=== PATIENT | female | born 1990 | race Caucasian/White ===

== ENCOUNTER 2017-07-29 21:23 | Emergency (ER) | payer OTHER ==
[2017-07-29 22:05] VITALS: BP 140/94; PULSE 77; RESP 18; TEMP 98.5
--- NOTE | 2017-07-29 22:18 | ED ---
General Adult HPI - General Chief complaint: Needlestick/Exposure Stated complaint: Needle stick Time Seen by Provider: 07/29/17 22:13 Source: patient, RN notes reviewed, old records reviewed Mode of arrival: ambulatory Limitations: no limitations - History of Present Illness Initial comments: 27-year-old female presents emergency Department with a chief complaint of needle stick. Patient was sewing a laceration and actually stuck her left index finger. 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 Patient reports that she cleaned herself with soap and water. We are able to obtain the labs from the Patient that she actually stuck. - Related Data Allergies Allergy/AdvReac Type Severity Reaction Status Date / Time Sulfa (Sulfonamide Allergy Rash/Hives Verified 07/29/17 22:03 Antibiotics) Review of Systems ROS Statement: Those systems with pertinent positive or pertinent negative responses have been documented in the HPI. ROS Other: All systems not noted in ROS Statement are negative. Past Medical History Past Medical History: No Reported History History of Any Multi-Drug Resistant Organisms: MRSA Date of last positivie culture/infection: 2011 MDRO Source:: buttocks Past Surgical History: No Surgical Hx Reported Past Psychological History: Anxiety, Depression Smoking Status: Never smoker Past Alcohol Use History: None Reported Past Drug Use History: None Reported General Exam - General Exam Comments Initial Comments: this is a 27-year-old female. Alert and oriented. No significant distress. Limitations: no limitations General appearance: alert, in no apparent distress Head exam: Present: atraumatic, normocephalic, normal inspection Eye exam: Present: normal appearance, PERRL, EOMI. Absent: scleral icterus, conjunctival injection, periorbital swelling ENT exam: Present: normal exam, mucous membranes moist Neck exam: Present: normal inspection. Absent: tenderness, meningismus, lymphadenopathy Respiratory exam: Present: normal lung sounds bilaterally. Absent: respiratory distress, wheezes, rales, rhonchi, stridor Cardiovascular Exam: Present: regular rate, normal rhythm, normal heart sounds. Absent: systolic murmur, diastolic murmur, rubs, gallop, clicks Extremities exam: Present: normal inspection, full ROM, normal capillary refill. Absent: tenderness, pedal edema, joint swelling, calf tenderness Back exam: Present: normal inspection Neurological exam: Present: alert Psychiatric exam: Present: normal affect, normal mood Skin exam: Present: warm, dry, intact, normal color. Absent: rash Course Vital Signs 07/29/17 21:57 Temperature 98.5 F Pulse Rate 77 Respiratory 18 Rate Blood Pressure 140/94 O2 Sat by Pulse 100 Oximetry Medical Decision Making - Medical Decision Making Patient is a 19-year-old female presents for needlestick injury. We were able to obtain the labs from the Patient that she was actually struck by. Patient discussed about prophylaxis. We will hold off at this time until results of the other Patient that she was actually stuck.by. Patient understands treatment plan will comply. Return parameters were discussed. Disposition Clinical Impression: Needle stick injury Disposition: HOME SELF-CARE Condition: Good Instructions: Needle Stick Injuries (ED) Additional Instructions: Patient should follow-up with primary care provider. We'll inform you of your results. Return to the emergency department if any alarming signs or symptoms occur. Or return here for work. Is patient prescribed a controlled substance at d/c from ED?: No When asked, does pt state using other controlled substances?: No If prescribed controlled substance>3 days was MAPS reviewed?: No If opioid is for acute pain is fill amount 7 days or less?: No If Rx opioid, was Start Talking consent form obtained?: No Referrals: Danita Fagan DO [Primary Care Provider] - 1-2 days Time of Disposition: 22:17
== END 2017-07-29 22:50 | disposition home or self-care (01) ==
LOC: EC 21:23
DX: S61.231A Puncture wound without foreign body of left index finger without damage to nail, initial encounter (principal); Z86.14 Personal history of Methicillin resistant Staphylococcus aureus infection; Z88.2 Allergy status to sulfonamides; W46.0XXA Contact with hypodermic needle, initial encounter
CPT/HCPCS: 99283

== ENCOUNTER → 2018-08-03 | Outpatient (CLI) | payer BC ==
[2018-08-03 11:21] LABS: Basophils % (A) 0 %; Eosinophils # (A) 0.2 k/uL (0-0.7); Eosinophils % (A) 3 %; HCT 40.3 % (34.0-46.0); HGB 13.6 gm/dL (11.4-16.0); Lymphocytes # (A) 2.3 k/uL (1.0-4.8); Lymphocytes % (A) 43 %; MCH 28.8 pg (25.0-35.0); MCHC 33.7 g/dL (31.0-37.0); MCV 85.4 fL (80.0-100.0); Mean Platelet Volume 7.5; Monocytes # (A) 0.2 k/uL (0-1.0); Monocytes % (A) 4 %; Neutrophils # (A) 2.5 k/uL (1.3-7.7); Neutrophils % (A) 47 %; Platelet Count 292 k/uL (150-450); RBC 4.72 m/uL (3.80-5.40); RDW 12.5 % (11.5-15.5); WBC 5.3 k/uL (3.8-10.6)
[2018-08-03 16:42] LABS: Anion Gap 7.6 mmol/L (4.00-12.00); Carbon Dioxide 29.4 mmol/L (21.6-31.8); Potassium 4.6 mmol/L (3.5-5.5)
== END | disposition home or self-care (01) ==
LOC: LABWHC1 10:17
PROVIDERS: ATTEND Family Medicine
DX: E87.1 Hypo-osmolality and hyponatremia (principal); D72.819 Decreased white blood cell count, unspecified
CPT/HCPCS: 36415; 80051; 85025